=== PATIENT | female | born 2000 | race African-American/Black ===

== ENCOUNTER 2023-03-13 10:21 | Emergency (ER) | payer MEDICAID ==
[~2023-03-13] VITALS: Ht 160 cm; Wt 55.0 kg
[2023-03-13 10:26] VITALS: BP 112/80; PULSE 90; RESP 18; TEMP 98.5; O2SAT 100
== END 2023-03-13 13:05 | disposition left against medical advice (07) ==
LOC: ER 10:21
DX: Z53.21 Procedure and treatment not carried out due to patient leaving prior to being seen by health care provider (principal)
CPT/HCPCS: 99281